=== PATIENT | female | born 1950 | race Caucasian/White ===

== ENCOUNTER 2019-07-24 15:37 | Inpatient (IN) | payer MEDICARE, OTHER ==
[~2019-07-24] VITALS: Ht 162.6 cm; Wt 80.0 kg
[2019-07-24] MEDS: diatr meglu/diatrizoate 30ml oral sol.-(3 dose) bottle PO SCH ×3 (16:27→17:58)
[2019-07-24 16:33] LABS: BASOPHILS % (AUTO) 0.3 % (0-1); EOSINOPHILS # (AUTO) 0.2 X10'3 (0-0.9); EOSINOPHILS % (AUTO) 1.9 % (0-6); HEMATOCRIT 36.5 % (35.0-45.0); HEMOGLOBIN 12.4 g/dl (12.0-16.0); LYMPHOCYTES # (AUTO) 1.5 X10'3 (1.1-4.8); LYMPHOCYTES % (AUTO) 14.7 % (21-51); MEAN CORPUSCULAR HEMOGLOBIN 31.6 PG (27.0-31.0); MEAN CORPUSCULAR HGB CONC 33.9 g/dL (33.0-36.5); MEAN CORPUSCULAR VOLUME 93.4 FL (78-98); MEAN PLATELET VOLUME 8.5 FL (7.4-10.4); MONOCYTES # (AUTO) 0.8 X10'3 (0-0.9); MONOCYTES % (AUTO) 7.5 % (2-12); NEUTROPHILS # (AUTO) 7.6 X10'3 (1.8-7.7); NEUTROPHILS % (AUTO) 75.6 % (42-75); PLATELET COUNT 373 X10'3 (140-440); RED BLOOD COUNT 3.91 X10'6 (4.20-5.60); RED CELL DISTRIBUTION WIDTH 13.7 % (11.5-14.5); WHITE BLOOD COUNT 10.1 X10'3 (4.5-11.0)
[2019-07-24 17:06] LABS: ALANINE AMINOTRANSFERASE 18 U/L (12-78); ALBUMIN 3.2 G/DL (3.4-5.0); ALBUMIN/GLOBULIN RATIO 0.9 (1.1-1.5); ALKALINE PHOSPHATASE 71 IU/L (46-116); ANION GAP 10 (8-16); ASPARTATE AMINO TRANSFERASE 10 U/L (10-37); BILIRUBIN,TOTAL 0.4 MG/DL (0.1-1.0); BLOOD UREA NITROGEN 8 MG/DL (7-18); BUN/CREATININE RATIO 12.1 (6.6-38.0); CALCIUM 9.6 MG/DL (8.5-10.1); CHLORIDE 109 MMOL/L (99-107); CREATININE 0.66 MG/DL (0.40-0.90); GLUCOSE 82 MG/DL (70-104); POTASSIUM 3.9 MMOL/L (3.5-5.1); SODIUM 143 MMOL/L (135-145); TOTAL PROTEIN 6.9 G/DL (6.4-8.2); eGFR 89 ML/MIN
[2019-07-24] MEDS ORDERED: iohexol 300mg/ml 100ml inj. ONE (17:50)
--- NOTE | 2019-07-24 19:13 | NUR ---
spoke SANDRA BRENNER ABOUT UA SPECIMAN. PT SPECIMAN VERY LITTLE. SANDRA BRENNER AWARE UA HAS NOT BE RAN.
[2019-07-24] MEDS ORDERED: normal saline 1000ML IV soln IVB ONE (19:35)
--- NOTE | 2019-07-24 20:01 | NUR ---
PT HAVEING LOOSE STOOL HAS VISITED THE RESTROOM ABOUT 4 TIMES IN THE LAST HOUR SANDRA BRENNER AWARE. NS BOLUS RUNNINH IV PATENT URINE SPECIMAN SENT TO LAB. BEDSIDE COMODE BROUGHT TO ROOM
--- NOTE | 2019-07-24 20:10 | NUR ---
PT GIVEN HS MEDS AND NEW BAG OF NS HUNG. NO COMPLAINTS OF NAUSEA AT THIS TIME. TEACHING REGARDING FOODS ETC. THAT CAN HELP HER WITH THIS AND ALSO ON WIPING STUFF WITH BLEACH IN THE HOME. PT AND VERY RECEPTIVE TO TEACHING.
[2019-07-24] MEDS ORDERED: normal saline 1000ML IV soln IV ONE (20:15)
[2019-07-24 20:16] LABS: COLOR,URINE YELLOW (Yellow); GLUCOSE, URINE NEGATIVE (Neg); KETONES,URINE 15 mg/dl (Neg); LEUKOCYTE ESTERASE ,URINE NEGATIVE (Neg); NITRITES, URINE NEGATIVE (Neg); OCCULT BLOOD,URINE TRACE-INTACT (Neg); PH,URINE 5.5 (4.8-8.0); PROTEIN,URINE NEGATIVE (Neg); UROBILINOGEN,URINE 0.2 E.U/dL (0.2-1.0)
[2019-07-24] MEDS ORDERED: vancomycin 250MG/10ML UD oral solution 10ML BOTTLE PO ONE (20:16)
[2019-07-24 20:28] LABS: CLARITY,URINE SLIGHTLY CLOUDY (Clear); UA COLLECTION TYPE CLN CATCH MIDSTREAM
[2019-07-24 20:30] LABS: BACTERIA,URINE FEW /HPF (Neg); RBC,URINE 0-2 /HPF (0-2); SQUAMOUS EPITHELIAL CELL,UR FEW /LPF (FEW); WBC,URINE 0-4 /HPF (0-4)
--- NOTE | 2019-07-24 20:36 | NUR ---
LAB HERE FOR DRAW
[2019-07-24] MEDS ORDERED: potassium Cl 20 mEq SR tablet PO PRN (20:40)
[2019-07-24] MEDS ORDERED: magnesium hydroxide 30ml (MOM) UD suspension PO PRN (20:40)
[2019-07-24] MEDS ORDERED: potassium CL 10mEq/100ml bag 100 ML IV PRN ×2 (20:40)
[2019-07-24] MEDS ORDERED: acetaminophen 325mg tablet PO PRN ×2 (20:40)
[2019-07-24] MEDS ORDERED: mag hydrox/Alum hydrox/simeth 30ml oral suspension PO PRN (20:40)
[2019-07-24] MEDS ORDERED: HYDROcodone/acetaminophen 5mg/325mg tablet PO PRN (20:40)
--- NOTE | 2019-07-24 20:40 | NUR ---
CONTACT ISOLATION PRECATIONS INITIATED
--- NOTE | 2019-07-24 21:02 | NUR ---
PHONED PHARMACY FOR GAUDENCIO LINTON . 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
--- NOTE | 2019-07-24 21:10 | NUR ---
STOOL SPECIAMN SENT TO LAB
[2019-07-24] MEDS ORDERED: sodium chloride 0.45% 1,000 ML IV SCH (21:20)
--- NOTE | 2019-07-24 21:23 | NUR ---
PHONED ORTHO FLOOR TO ASK RN PATRICIA RN TO REMOVE HERSELF FROM THE PT MED REC SO THAT THE MED REC CAN BEEN COMPLETED IN THE ER PRIOR TO PT BEING REPORTED ON .
[2019-07-24] MEDS ORDERED: HYDR200T80 PO (21:29)
[2019-07-24] MEDS ORDERED: SULI200T97 PO (21:30)
[2019-07-24] MEDS ORDERED: FAMO40TA7 PO ×2 (21:31)
[2019-07-24] MEDS ORDERED: ALEN70TA60 PO (21:32)
[2019-07-24] MEDS ORDERED: IMI20NS NS (21:33)
[2019-07-24] MEDS ORDERED: HYOS-13 PO (21:37)
[2019-07-24] MEDS ORDERED: FLUO10CA30 PO (21:37)
[2019-07-24] MEDS ORDERED: PRED1TAB PO (21:38)
[2019-07-24] MEDS ORDERED: MET0.75G TP (21:38)
[2019-07-24] MEDS ORDERED: FOLI0.4T2 PO (21:40)
[2019-07-24] MEDS ORDERED: LORA10TA7 PO (21:40)
[2019-07-24] MEDS ORDERED: METH-339 PO (21:45)
[2019-07-24] MEDS ORDERED: CALC600T18 PO (21:45)
[2019-07-24] MEDS ORDERED: TURM500C4 PO (21:47)
[2019-07-24] MEDS ORDERED: LACT1CAP65 PO (21:47)
[2019-07-24] MEDS ORDERED: MULT-1085 PO (21:48)
[2019-07-24] MEDS ORDERED: ONDA4TAB12 PO (21:49)
[2019-07-24] MEDS ORDERED: CHOL100046 PO (21:54)
--- NOTE | 2019-07-24 22:05 | NUR ---
Received report from JOSE ELIAS Hudson in ED.
[2019-07-24 22:25] VITALS: BP 113/74
--- NOTE | 2019-07-24 22:25 | NUR ---
Pt transported via wheelchair from ED, assumed patient care.
[2019-07-24] MEDS: metroNIDAZOLE-Flagyl 500mg/NS 100 ML IV SCH (23:53)
[2019-07-25] MEDS: vancomycin 125mg/5ml ORAL solution 5ml UD bottle PO SCH ×4 (03:03→20:33)
[2019-07-25 06:00] VITALS: BP 133/68
--- NOTE | 2019-07-25 06:20 | NUR ---
Patient in room ORTHO 4017. I have received report from Carie and had the opportunity to ask questions and assume patient care.
--- NOTE | 2019-07-25 06:24 | NUR ---
Patient report given, questions answered and plan of care reviewed with JOSE ELIAS Etienne.
[2019-07-25] MEDS: normal saline 1000ml 1,000 ML IV SCH ×4 (06:38→20:36)
[2019-07-25 07:03] LABS: ALBUMIN 2.8 G/DL (3.4-5.0); ANION GAP 11 (8-16); BLOOD UREA NITROGEN 4 MG/DL (7-18); BUN/CREATININE RATIO 7.7 (6.6-38.0); CALCIUM 8.2 MG/DL (8.5-10.1); CHLORIDE 110 MMOL/L (99-107); CREATININE 0.52 MG/DL (0.40-0.90); GLUCOSE 84 MG/DL (70-104); POTASSIUM 3.2 MMOL/L (3.5-5.1); SODIUM 140 MMOL/L (135-145); TOTAL CARBON DIOXIDE 18.9 MMOL/L (24-32); eGFR > 90 ML/MIN
[2019-07-25 07:11] LABS: BASOPHILS # (AUTO) 0.1 X10'3 (0-0.2); BASOPHILS % (AUTO) 0.6 % (0-1); EOSINOPHILS # (AUTO) 0.4 X10'3 (0-0.9); HEMATOCRIT 36.2 % (35.0-45.0); HEMOGLOBIN 12.2 g/dl (12.0-16.0); LYMPHOCYTES % (AUTO) 21.7 % (21-51); MEAN CORPUSCULAR HEMOGLOBIN 31.8 PG (27.0-31.0); MEAN CORPUSCULAR HGB CONC 33.9 g/dL (33.0-36.5); MONOCYTES # (AUTO) 0.8 X10'3 (0-0.9); MONOCYTES % (AUTO) 9.1 % (2-12); NEUTROPHILS # (AUTO) 5.9 X10'3 (1.8-7.7); NEUTROPHILS % (AUTO) 64.6 % (42-75); PLATELET COUNT 367 X10'3 (140-440); RED BLOOD COUNT 3.85 X10'6 (4.20-5.60); RED CELL DISTRIBUTION WIDTH 13.4 % (11.5-14.5); WHITE BLOOD COUNT 9.1 X10'3 (4.5-11.0)
[2019-07-25] MEDS: K and/or MAG REPLACEMENT MC SCH (07:31)
--- NOTE | 2019-07-25 07:45 | NUR ---
Patient complaining of headache, "It feels like a migraine is starting." Also, patient has nausea and vomited up shortly after taking vancomycin.
[2019-07-25] MEDS: potassium Cl 20 mEq SR tablet PO PRN ×3 (07:51→20:33)
[2019-07-25] MEDS: enoxaparin 40mg/0.4ml syringe SUBCUT SCH (07:56)
[2019-07-25] MEDS: ondansetron/PF 4mg/2ml inj IV PRN ×2 (08:11→13:50)
[2019-07-25] MEDS: metroNIDAZOLE-Flagyl 500mg/NS 100 ML IV SCH ×2 (08:20→16:21)
[2019-07-25 09:19] VITALS: BP 132/67
[2019-07-25 10:00] VITALS: BP 132/60
[2019-07-25 10:14] LABS: C DIFF ANTIGEN SEE COMMENTS (NEGATIVE); C DIFF SPECIMEN=DIARRHEA? ACCEPTABLE; C DIFFICILE TOXINS A&B NEGATIVE (Neg)
--- NOTE | 2019-07-25 11:35 | NUR ---
Patient report given, questions answered & plan of care reviewed with
--- NOTE | 2019-07-25 12:07 | NUR ---
Student Medication Administration:For this medication-pass time frame [id number], all medications were reviewed, administered and documented per hospital policy by Sahara Sosa. Student documentation:I have reviewed and agree with all interventions, assessments performed and documented by Sahara Sosa.
--- NOTE | 2019-07-25 12:09 | NUR ---
Pt on regular diet admit w/ recurrent colitis. JOANN d/w RN regarding advancing to low-residue diet given proper MNT per MD approval. Addendum: 07/25/19 at [address] Amended: Links added.
[2019-07-25 12:39] LABS: C DIFF TOXIN (LAMP) POSITIVE (NEG)
[2019-07-25] MEDS: SUMAtriptan 25 MG tablet PO PRN ×2 (13:54→16:27)
[2019-07-25] MEDS ORDERED: SUMAtriptan 25 MG tablet PO ONE (17:00)
[2019-07-25 18:00] VITALS: BP 156/76
--- NOTE | 2019-07-25 18:25 | NUR ---
Patient in room ORTHO 4017. I have received report from YUE MOCTEZUMA and had the opportunity to ask questions and assume patient care. Addendum: 07/25/19 at 2147 by Sabi Guillen RN Amended: Links added.
--- NOTE | 2019-07-25 20:00 | NUR ---
PT TOOK HS MEDS TEACHING TO AND REGARDING FOODS THAT HELP WITH CDIFF AND COLITIS AND PLAN OF CARE REVIEWED WITH PT. ALSO HOW TO CLEAN HOUSE FOR PREVENTION OF SPREADING CDIFF DONE WITH THE .
[2019-07-25] MEDS: lactobacillus rhamnosus 10,000 MMU CELLS/CAPSULE PO SCH (20:33)
[2019-07-25 22:00] VITALS: BP 131/70
--- NOTE | 2019-07-25 22:04 | NUR ---
RESTING ON RIGHT SIDE WITHOUT S&S OF DISTRESS AT THIS TIME.
--- NOTE | 2019-07-26 00:05 | NUR ---
RESTING EYES CLOSED WITH CPAP ON NO S&S OF DISTRESS AT THIS TIME.
[2019-07-26] MEDS: metroNIDAZOLE-Flagyl 500mg/NS 100 ML IV SCH ×3 (00:45→16:53)
--- NOTE | 2019-07-26 02:15 | NUR ---
PT AWOKE CPAP OFF AND TOOK VANCO PO AND STATED SHE HAS HAD 3 BM'S TONIGHT ONE SMALL, A WATERY ONE AND MED SIZED WITH SOME CONSISTENCY. STATES FEELING BETTER TONIGHT. CPAP BACK ON AFTER THIS.
[2019-07-26] MEDS: vancomycin 125mg/5ml ORAL solution 5ml UD bottle PO SCH ×4 (02:25→19:37)
--- NOTE | 2019-07-26 02:44 | NUR ---
resting with cpap on and without s&s of distress at this time.
--- NOTE | 2019-07-26 03:55 | NUR ---
RESTING CPAP ON NO S&S OF DISTRESS.
[2019-07-26 05:43] LABS: BASOPHILS # (AUTO) 0.1 X10'3 (0-0.2); BASOPHILS % (AUTO) 0.7 % (0-1); EOSINOPHILS # (AUTO) 0.4 X10'3 (0-0.9); HEMATOCRIT 34.3 % (35.0-45.0); HEMOGLOBIN 11.8 g/dl (12.0-16.0); LYMPHOCYTES # (AUTO) 2.4 X10'3 (1.1-4.8); LYMPHOCYTES % (AUTO) 25.9 % (21-51); MEAN CORPUSCULAR HGB CONC 34.5 g/dL (33.0-36.5); MEAN CORPUSCULAR VOLUME 92.8 FL (78-98); MEAN PLATELET VOLUME 8.3 FL (7.4-10.4); MONOCYTES # (AUTO) 0.8 X10'3 (0-0.9); NEUTROPHILS # (AUTO) 5.6 X10'3 (1.8-7.7); NEUTROPHILS % (AUTO) 60.4 % (42-75); PLATELET COUNT 386 X10'3 (140-440); RED CELL DISTRIBUTION WIDTH 13.5 % (11.5-14.5); WHITE BLOOD COUNT 9.3 X10'3 (4.5-11.0)
--- NOTE | 2019-07-26 05:57 | NUR ---
RESTING WITH CPAP ON NO S&S OF DISTRESS OR COMPLAINTS AT THIS TIME.
[2019-07-26 05:58] LABS: ALBUMIN 2.7 G/DL (3.4-5.0); ANION GAP 10 (8-16); BLOOD UREA NITROGEN 4 MG/DL (7-18); BUN/CREATININE RATIO 7.1 (6.6-38.0); CALCIUM 7.6 MG/DL (8.5-10.1); CHLORIDE 112 MMOL/L (99-107); CREATININE 0.56 MG/DL (0.40-0.90); GLUCOSE 94 MG/DL (70-104); POTASSIUM 3.7 MMOL/L (3.5-5.1); SODIUM 144 MMOL/L (135-145); TOTAL CARBON DIOXIDE 22.2 MMOL/L (24-32); eGFR > 90 ML/MIN
[2019-07-26 06:00] VITALS: BP 151/67
--- NOTE | 2019-07-26 06:27 | NUR ---
Problems reprioritized. Patient report given, questions answered & plan of care reviewed with YUE MOCTEZUMA.
[2019-07-26] MEDS: normal saline 1000ml 1,000 ML IV SCH ×2 (07:22→16:53)
[2019-07-26] MEDS: K and/or MAG REPLACEMENT MC SCH (08:00)
[2019-07-26 08:02] LABS: PLATELET ESTIMATE NORMAL; TOTAL CELLS COUNTED 100
[2019-07-26 08:03] LABS: POLYCHROMASIA FEW
[2019-07-26] MEDS: lactobacillus rhamnosus 10,000 MMU CELLS/CAPSULE PO SCH ×2 (09:40→19:37)
[2019-07-26] MEDS: enoxaparin 40mg/0.4ml syringe SUBCUT SCH (09:59)
[2019-07-26 10:00] VITALS: BP 137/75
[2019-07-26] MEDS ORDERED: HYOSCYAMINE SULFATE 0.125 MG PO SCH (11:55)
[2019-07-26] MEDS: ondansetron/PF 4mg/2ml inj IV PRN (11:56)
[2019-07-26] MEDS: folic acid 0.4mg tablet PO SCH (12:49)
[2019-07-26] MEDS: SUMAtriptan 25 MG tablet PO PRN (12:49)
[2019-07-26] MEDS: loratadine 10mg tablet PO SCH (12:49)
[2019-07-26] MEDS: predniSONE 1 mg tablet PO SCH (17:00)
--- NOTE | 2019-07-26 17:00 | NUR ---
Pt experience nausea w/ vomiting this am. Zofran given IV with good relief. Pt c/o Migraine at approximately 1300. Imitrex 100mg po administered per pts request with good relief of pain. Pt reports 5 episodes of loose stools today. Pt reports stools are no longer watery but are starting to have some consistency to them and they are a light brown color. Pt is on Contact Precautions for C-Diff. Will continue to monitor.
[2019-07-26 18:00] VITALS: BP 156/64
--- NOTE | 2019-07-26 18:54 | NUR ---
Patient in room ORTHO 4017. I have received report from JOSE ELIAS Etienne and had the opportunity to ask questions and assume patient care. Patient is A&O x3, LESLIE and is appropriate she is sitting up eating dinner w/o problem. I will continue to monitor.
[2019-07-26] MEDS: hydroxychloroquine 200mg tablet PO SCH (19:37)
[2019-07-26] MEDS ORDERED: hydroxychloroquine 200mg tablet PO SCH (20:00)
[2019-07-26 22:00] VITALS: BP 122/60
[2019-07-27] MEDS: normal saline 1000ml 1,000 ML IV SCH (00:49)
[2019-07-27] MEDS: metroNIDAZOLE-Flagyl 500mg/NS 100 ML IV SCH ×2 (00:49→07:49)
[2019-07-27] MEDS: vancomycin 125mg/5ml ORAL solution 5ml UD bottle PO SCH ×3 (02:08→14:25)
[2019-07-27 06:00] VITALS: BP 133/76
--- NOTE | 2019-07-27 06:05 | NUR ---
Patient in room ORTHO 4017. I have received report from ANALI MOCTEZUMA and had the opportunity to ask questions and assume patient care.
--- NOTE | 2019-07-27 06:08 | NUR ---
Problems reprioritized. Patient report given, questions answered & plan of care reviewed with JOSE ELIAS Khan.
[2019-07-27 06:15] LABS: BASOPHILS # (AUTO) 0.1 X10'3 (0-0.2); BASOPHILS % (AUTO) 0.6 % (0-1); EOSINOPHILS # (AUTO) 0.5 X10'3 (0-0.9); EOSINOPHILS % (AUTO) 4.2 % (0-6); HEMATOCRIT 33.8 % (35.0-45.0); HEMOGLOBIN 11.6 g/dl (12.0-16.0); LYMPHOCYTES # (AUTO) 2.6 X10'3 (1.1-4.8); LYMPHOCYTES % (AUTO) 23.6 % (21-51); MEAN CORPUSCULAR HEMOGLOBIN 31.8 PG (27.0-31.0); MEAN CORPUSCULAR HGB CONC 34.4 g/dL (33.0-36.5); MEAN CORPUSCULAR VOLUME 92.6 FL (78-98); MEAN PLATELET VOLUME 8.2 FL (7.4-10.4); MONOCYTES # (AUTO) 1.1 X10'3 (0-0.9); MONOCYTES % (AUTO) 9.7 % (2-12); NEUTROPHILS # (AUTO) 6.7 X10'3 (1.8-7.7); NEUTROPHILS % (AUTO) 61.9 % (42-75); PLATELET COUNT 379 X10'3 (140-440); RED BLOOD COUNT 3.65 X10'6 (4.20-5.60); RED CELL DISTRIBUTION WIDTH 13.3 % (11.5-14.5); WHITE BLOOD COUNT 10.8 X10'3 (4.5-11.0)
[2019-07-27 06:36] LABS: ALBUMIN 2.5 G/DL (3.4-5.0); ANION GAP 9 (8-16); BLOOD UREA NITROGEN 4 MG/DL (7-18); BUN/CREATININE RATIO 7.7 (6.6-38.0); CALCIUM 7.9 MG/DL (8.5-10.1); CHLORIDE 110 MMOL/L (99-107); CREATININE 0.52 MG/DL (0.40-0.90); GLUCOSE 96 MG/DL (70-104); POTASSIUM 3.2 MMOL/L (3.5-5.1); SODIUM 143 MMOL/L (135-145); eGFR > 90 ML/MIN
[2019-07-27] MEDS: K and/or MAG REPLACEMENT MC SCH (07:34)
[2019-07-27] MEDS: loratadine 10mg tablet PO SCH (07:48)
[2019-07-27] MEDS: lactobacillus rhamnosus 10,000 MMU CELLS/CAPSULE PO SCH (07:48)
[2019-07-27] MEDS: hydroxychloroquine 200mg tablet PO SCH (07:49)
[2019-07-27] MEDS: potassium Cl 20 mEq SR tablet PO PRN ×2 (07:49→11:20)
[2019-07-27] MEDS: predniSONE 1 mg tablet PO SCH (07:49)
[2019-07-27] MEDS: folic acid 0.4mg tablet PO SCH (07:49)
[2019-07-27] MEDS: enoxaparin 40mg/0.4ml syringe SUBCUT SCH (07:50)
[2019-07-27] MEDS ORDERED: non-formulary drug (Lactobacillus Acidophilus (Probiotic) 1 EACH) PO SCH (08:00)
[2019-07-27] MEDS ORDERED: FLUoxetine 10mg capsule PO SCH (08:00)
[2019-07-27 09:19] LABS: PLATELET ESTIMATE NORMAL; TOTAL CELLS COUNTED 100; TOXIC GRANULATION 1+
[2019-07-27 09:20] LABS: POLYCHROMASIA FEW
[2019-07-27 10:00] VITALS: BP 134/71
[2019-07-27] MEDS: SUMAtriptan 25 MG tablet PO PRN (11:17)
--- NOTE | 2019-07-27 11:31 | NUR ---
Student documentation: I have reviewed all interventions, assessments performed and documented by Joao Spaulding. Student Medication Administration: For this medication-pass time frame, all medication were reviewed, dispensed, administered and documented per hospital policy by Joao Spaulding.
[2019-07-27] MEDS ORDERED: VANC5VIA PO (13:45)
--- NOTE | 2019-07-27 15:30 | NUR ---
PATIENT DISCHARGED SAFELY WITH . ALL BELONGINGS IN POSSESSION. PATIENT VERBALIZES UNDERSTANDING OF ALL DC INSTRUCTIONS. PRESCRIPTIONS CALLED IN TO JOSE.
== END 2019-07-27 15:50 | disposition home or self-care (01) | DRG 373 ==
LOC: ER 15:37 → ORTHO 4S 22:44 → CMPBEDREQ 07-25 19:48
PROVIDERS: ADMIT Hospitalist; ATTEND Internal Medicine
PROC: BW211ZZ Computerized Tomography (CT Scan) of Abdomen and Pelvis using Low Osmolar Contrast (ICD-10-PCS; 2019-07-24)
PROC: 5A09357 Assistance with Respiratory Ventilation, Less than 24 Consecutive Hours, Continuous Positive Airway Pressure (ICD-10-PCS; principal; 2019-07-25)
PROC: 5A09357 Assistance with Respiratory Ventilation, Less than 24 Consecutive Hours, Continuous Positive Airway Pressure (ICD-10-PCS; 2019-07-27)
DX: A04.72 Enterocolitis due to Clostridium difficile, not specified as recurrent (principal); M48.061 Spinal stenosis, lumbar region without neurogenic claudication; M06.9 Rheumatoid arthritis, unspecified; K58.0 Irritable bowel syndrome with diarrhea; M81.0 Age-related osteoporosis without current pathological fracture; F32.9 Major depressive disorder, single episode, unspecified; G43.909 Migraine, unspecified, not intractable, without status migrainosus; M06.1 Adult-onset Still's disease; Z85.820 Personal history of malignant melanoma of skin; Z88.2 Allergy status to sulfonamides
CPT/HCPCS: 36415; 74177; 80048; 80053; 81001; 83605; 84145; 85025; 85610; 87040; 87081; 87324; 87449; 87493; 96372; 99285; G0378; J1650; J2405; J3490; J7030; J7512; Q9963; Q9967

== ENCOUNTER 2019-08-12 16:28 | Inpatient (IN) | payer MEDICARE, OTHER ==
[~2019-08-12] VITALS: Ht 165.1 cm; Wt 71.0 kg
[~2019-08-12 16:28] MED LIST: ALEN70TA60 PO; CALC600T18 PO; CHOL100046 PO; FAMO40TA7 PO; FLUO10CA30 PO; FOLI0.4T2 PO; HYDR200T80 PO; HYOS-13 PO; IMI20NS NS; LACT1CAP65 PO; LORA10TA7 PO; METH-339 PO; MULT-1085 PO; ONDA4TAB12 PO; PRED1TAB PO; SULI200T97 PO; TURM500C4 PO; VANC5VIA PO
[2019-08-12] MEDS ORDERED: normal saline 1000ML IV soln IVB ONE (17:40)
[2019-08-12 18:19] LABS: BASOPHILS # (AUTO) 0.2 X10'3 (0-0.2); BASOPHILS % (AUTO) 0.7 % (0-1); EOSINOPHILS % (AUTO) 0.2 % (0-6); HEMATOCRIT 38.3 % (35.0-45.0); HEMOGLOBIN 12.9 g/dl (12.0-16.0); LYMPHOCYTES # (AUTO) 0.6 X10'3 (1.1-4.8); LYMPHOCYTES % (AUTO) 2.6 % (21-51); MEAN CORPUSCULAR HEMOGLOBIN 31.3 PG (27.0-31.0); MEAN CORPUSCULAR HGB CONC 33.6 g/dL (33.0-36.5); MEAN CORPUSCULAR VOLUME 93.1 FL (78-98); MEAN PLATELET VOLUME 8.5 FL (7.4-10.4); MONOCYTES # (AUTO) 1.2 X10'3 (0-0.9); NEUTROPHILS # (AUTO) 21.6 X10'3 (1.8-7.7); NEUTROPHILS % (AUTO) 91.5 % (42-75); PLATELET COUNT 380 X10'3 (140-440); RED BLOOD COUNT 4.11 X10'6 (4.20-5.60); RED CELL DISTRIBUTION WIDTH 14.5 % (11.5-14.5); WHITE BLOOD COUNT 23.6 X10'3 (4.5-11.0)
[2019-08-12 18:46] LABS: ALANINE AMINOTRANSFERASE 21 U/L (12-78); ALBUMIN 3.6 G/DL (3.4-5.0); ALBUMIN/GLOBULIN RATIO 1.1 (1.1-1.5); ALKALINE PHOSPHATASE 71 IU/L (46-116); ANION GAP 9 (8-16); ASPARTATE AMINO TRANSFERASE 17 U/L (10-37); BILIRUBIN,TOTAL 0.7 MG/DL (0.1-1.0); BLOOD UREA NITROGEN 21 MG/DL (7-18); BUN/CREATININE RATIO 28.4 (6.6-38.0); CALCIUM 8.8 MG/DL (8.5-10.1); CHLORIDE 103 MMOL/L (99-107); CREATININE 0.74 MG/DL (0.40-0.90); GLUCOSE 97 MG/DL (70-104); LIPASE 77 U/L (73-393); POTASSIUM 3.8 MMOL/L (3.5-5.1); SODIUM 136 MMOL/L (135-145); TOTAL CARBON DIOXIDE 23.8 MMOL/L (24-32); TOTAL PROTEIN 6.9 G/DL (6.4-8.2); eGFR 78 ML/MIN
[2019-08-12] MEDS ORDERED: vancomycin 250MG/10ML UD oral solution 10ML BOTTLE PO SCH (20:00)
[2019-08-12] MEDS ORDERED: SUMA25TA35 PO (20:08)
[2019-08-12] MEDS ORDERED: HYDR200T84 PO (20:08)
[2019-08-12] MEDS ORDERED: TURM500C4 PO (20:08)
[2019-08-12] MEDS ORDERED: potassium CL 10mEq/100ml bag 100 ML IV PRN ×2 (21:00)
[2019-08-12] MEDS ORDERED: magnesium 2GM in 50ml NS 50 ML IV PRN (21:00)
[2019-08-12] MEDS ORDERED: magnesium 4gm in 100ml NS 100 ML IV PRN (21:00)
[2019-08-12] MEDS ORDERED: magnesium Cl slow-release 64mg tablet PO PRN (21:00)
[2019-08-12] MEDS ORDERED: acetaminophen 325mg tablet PO PRN (21:00)
--- NOTE | 2019-08-12 22:08 | NUR ---
Patient in room ED 9. I have received report from JOSE ELIAS [facility] and had the opportunity to ask questions and assume patient care.
[2019-08-12] MEDS: normal saline 1000ml 1,000 ML IV SCH (22:49)
[2019-08-13] VITALS: BP 114/67
[2019-08-13] MEDS: metroNIDAZOLE-Flagyl 500mg/NS 100 ML IV SCH ×4 (00:54→23:56)
[2019-08-13] MEDS: vancomycin 125mg/5ml ORAL solution 5ml UD bottle PO SCH ×4 (01:57→20:34)
[2019-08-13 05:04] LABS: BASOPHILS % (AUTO) 0.1 % (0-1); EOSINOPHILS % (AUTO) 0.2 % (0-6); HEMATOCRIT 36.4 % (35.0-45.0); HEMOGLOBIN 12.4 g/dl (12.0-16.0); LYMPHOCYTES # (AUTO) 0.8 X10'3 (1.1-4.8); LYMPHOCYTES % (AUTO) 3.7 % (21-51); MEAN CORPUSCULAR HEMOGLOBIN 31.6 PG (27.0-31.0); MEAN PLATELET VOLUME 8.5 FL (7.4-10.4); MONOCYTES # (AUTO) 1.4 X10'3 (0-0.9); MONOCYTES % (AUTO) 6.7 % (2-12); NEUTROPHILS # (AUTO) 18.9 X10'3 (1.8-7.7); NEUTROPHILS % (AUTO) 89.3 % (42-75); PLATELET COUNT 342 X10'3 (140-440); RED BLOOD COUNT 3.92 X10'6 (4.20-5.60); WHITE BLOOD COUNT 21.2 X10'3 (4.5-11.0)
[2019-08-13 05:15] LABS: ALBUMIN 3.2 G/DL (3.4-5.0); ANION GAP 10 (8-16); BLOOD UREA NITROGEN 20 MG/DL (7-18); BUN/CREATININE RATIO 32.3 (6.6-38.0); CALCIUM 8.6 MG/DL (8.5-10.1); CHLORIDE 105 MMOL/L (99-107); CREATININE 0.62 MG/DL (0.40-0.90); GLUCOSE 120 MG/DL (70-104); MAGNESIUM 1.9 MG/DL (1.5-2.4); POTASSIUM 3.1 MMOL/L (3.5-5.1); SODIUM 137 MMOL/L (135-145); TOTAL CARBON DIOXIDE 22.4 MMOL/L (24-32); eGFR > 90 ML/MIN
--- NOTE | 2019-08-13 06:39 | NUR ---
Patient in room [facility] 351. I have received report from Bryanna Smith RN and had the opportunity to ask questions and assume patient care.
--- NOTE | 2019-08-13 06:39 | NUR ---
Problems reprioritized. Patient report given, questions answered & plan of care reviewed with keaton Slade. Addendum: 08/13/19 at 0639 by Cheri Santo RN Amended: Links added.
[2019-08-13] MEDS ORDERED: SUMAtriptan 25 MG tablet PO PRN (07:00)
[2019-08-13] MEDS ORDERED: ondansetron 4mg rapidly disintigrating tab PO PRN (07:00)
[2019-08-13] MEDS ORDERED: ondansetron/PF 4mg/2ml inj IV PRN (07:00)
[2019-08-13] MEDS ORDERED: non-formulary drug (Alendronate Sodium* (Fosamax*) 1 TABLET) PO SCH (07:00)
[2019-08-13 07:23] VITALS: BP 129/71
[2019-08-13] MEDS ORDERED: hyoscyamine 0.125mg TAB.SUBL SL PRN (08:00)
[2019-08-13] MEDS: K and/or MAG REPLACEMENT MC SCH (08:00)
[2019-08-13] MEDS ORDERED: non-formulary drug (Turmeric/Turmeric Root Extract (Turmeric 500 mg Capsule) 1 CAP) PO SCH (08:00)
[2019-08-13] MEDS: hydroxychloroquine 200mg tablet PO SCH (08:16)
[2019-08-13] MEDS: multivitamins, therapeutics tablet PO SCH (08:16)
[2019-08-13] MEDS: vitamin D (cholecalciferol) 1,000 unit tablet PO SCH (08:16)
[2019-08-13] MEDS: folic acid 0.4mg tablet PO SCH (08:16)
[2019-08-13] MEDS: famotidine 20mg tablet PO SCH ×2 (08:17→20:33)
[2019-08-13] MEDS: lactobacillus rhamnosus 10,000 MMU CELLS/CAPSULE PO SCH (08:17)
[2019-08-13] MEDS: loratadine 10mg tablet PO SCH (08:17)
[2019-08-13] MEDS: potassium Cl 20 mEq SR tablet PO PRN ×3 (08:31→17:19)
[2019-08-13] MEDS: FLUoxetine 10mg capsule PO SCH (10:46)
[2019-08-13] MEDS: predniSONE 1 mg tablet PO SCH (10:46)
[2019-08-13] MEDS: normal saline 1000ml 1,000 ML IV SCH ×3 (10:50→23:10)
[2019-08-13 11:26] VITALS: BP 117/64
[2019-08-13 11:51] LABS: C DIFF ANTIGEN NEGATIVE (NEGATIVE); C DIFF SPECIMEN=DIARRHEA? ACCEPTABLE; C DIFFICILE TOXINS A&B NEGATIVE (Neg)
[2019-08-13 12:19] LABS: OCCULT BLOOD STOOL NEGATIVE (Neg)
--- NOTE | 2019-08-13 12:37 | NUR ---
c diff toxin negative. Hospitalist notified.
--- NOTE | 2019-08-13 15:19 | NUR ---
Malnutrition consult: Attempted visit with pt at bedside however pt sleeping. Unable to check for visible fat and muscle wasting as pt was under covers however pt appears well developed per H&P. Patient's only wt hx is 80 kg 07/24/19 however no documentation of how that weight was obtained. Current wt is 71 kg resulting in overweight BMI. Pt NPO. No decrease in muscle strength or edema. Pt currently lacks a minimum of two criteria for malnutrition. Will continue to follow and further assess malnutrition criteria during LOS. Addendum: 08/13/19 at [address] Amended: Links added.
[2019-08-13] MEDS: levoFLOXACIN-Levaquin 750MG/D5 150 ML IV SCH (15:40)
[2019-08-13 18:00] VITALS: BP 105/62
--- NOTE | 2019-08-13 18:41 | NUR ---
Problems reprioritized. Patient report given, questions answered & plan of care reviewed with JOSE ELIAS Santos.
--- NOTE | 2019-08-13 18:41 | NUR ---
Patient in room [facility] 351. I have received report from JOSE ELIAS Burrell and had the opportunity to ask questions and assume patient care.
[2019-08-13] MEDS: psyllium seed 3.4 gm packet PO SCH (21:00)
[2019-08-13] MEDS: diatr meglu/diatrizoate 30ml oral sol.-(3 dose) bottle PO SCH (21:56)
[2019-08-14] VITALS: BP 103/63
[2019-08-14] MEDS: vancomycin 125mg/5ml ORAL solution 5ml UD bottle PO SCH ×4 (01:57→20:10)
[2019-08-14 05:32] LABS: ALBUMIN 2.8 G/DL (3.4-5.0); ANION GAP 9 (8-16); BLOOD UREA NITROGEN 13 MG/DL (7-18); BUN/CREATININE RATIO 22.8 (6.6-38.0); CHLORIDE 111 MMOL/L (99-107); CREATININE 0.57 MG/DL (0.40-0.90); GLUCOSE 95 MG/DL (70-104); POTASSIUM 3.5 MMOL/L (3.5-5.1); SODIUM 141 MMOL/L (135-145); TOTAL CARBON DIOXIDE 20.8 MMOL/L (24-32); eGFR > 90 ML/MIN
[2019-08-14 05:55] LABS: BASOPHILS % (AUTO) 0.3 % (0-1); EOSINOPHILS # (AUTO) 0.4 X10'3 (0-0.9); EOSINOPHILS % (AUTO) 2.8 % (0-6); HEMOGLOBIN 11.1 g/dl (12.0-16.0); LYMPHOCYTES # (AUTO) 1.8 X10'3 (1.1-4.8); LYMPHOCYTES % (AUTO) 13.2 % (21-51); MEAN CORPUSCULAR HEMOGLOBIN 31.7 PG (27.0-31.0); MEAN CORPUSCULAR HGB CONC 33.7 g/dL (33.0-36.5); MEAN CORPUSCULAR VOLUME 94.3 FL (78-98); MEAN PLATELET VOLUME 8.9 FL (7.4-10.4); MONOCYTES # (AUTO) 0.8 X10'3 (0-0.9); NEUTROPHILS # (AUTO) 10.8 X10'3 (1.8-7.7); NEUTROPHILS % (AUTO) 77.7 % (42-75); PLATELET COUNT 277 X10'3 (140-440); RED CELL DISTRIBUTION WIDTH 15.2 % (11.5-14.5); WHITE BLOOD COUNT 13.9 X10'3 (4.5-11.0)
--- NOTE | 2019-08-14 06:42 | NUR ---
Patient in room [facility] 351. I have received report from JOSE ELIAS Santos and had the opportunity to ask questions and assume patient care.
--- NOTE | 2019-08-14 06:50 | NUR ---
Problems reprioritized. Patient report given, questions answered & plan of care reviewed with Ina Fontanez RN.
[2019-08-14 07:00] VITALS: BP 119/72
[2019-08-14] MEDS: diatr meglu/diatrizoate 30ml oral sol.-(3 dose) bottle PO SCH ×2 (07:46→10:19)
[2019-08-14] MEDS: levoFLOXACIN-Levaquin 750MG/D5 150 ML IV SCH (07:46)
[2019-08-14] MEDS: K and/or MAG REPLACEMENT MC SCH (08:00)
[2019-08-14] MEDS: metroNIDAZOLE-Flagyl 500mg/NS 100 ML IV SCH ×3 (08:00→23:53)
[2019-08-14] MEDS ORDERED: iohexol 300mg/ml 100ml inj. ONE (10:54)
[2019-08-14] MEDS: folic acid 0.4mg tablet PO SCH (13:56)
[2019-08-14] MEDS: famotidine 20mg tablet PO SCH ×2 (13:56→20:10)
[2019-08-14] MEDS: vitamin D (cholecalciferol) 1,000 unit tablet PO SCH (13:57)
[2019-08-14] MEDS: multivitamins, therapeutics tablet PO SCH (13:57)
[2019-08-14] MEDS: lactobacillus rhamnosus 10,000 MMU CELLS/CAPSULE PO SCH (13:57)
[2019-08-14] MEDS: FLUoxetine 10mg capsule PO SCH (13:57)
[2019-08-14] MEDS: loratadine 10mg tablet PO SCH (13:57)
[2019-08-14] MEDS: predniSONE 1 mg tablet PO SCH (13:58)
[2019-08-14] MEDS: hydroxychloroquine 200mg tablet PO SCH (13:59)
[2019-08-14] MEDS: normal saline 1000ml 1,000 ML IV SCH ×2 (14:07→23:53)
[2019-08-14 18:00] VITALS: BP 140/66
--- NOTE | 2019-08-14 18:07 | NUR ---
Problems reprioritized. Patient report given, questions answered & plan of care reviewed with JOSE ELIAS Santos.
--- NOTE | 2019-08-14 18:12 | NUR ---
Patient in room [facility] 351. I have received report from Ina Fontanez RN and had the opportunity to ask questions and assume patient care.
[2019-08-14] MEDS: psyllium seed 3.4 gm packet PO SCH (20:10)
[2019-08-15] VITALS: BP 122/57
[2019-08-15] MEDS: vancomycin 125mg/5ml ORAL solution 5ml UD bottle PO SCH ×2 (02:04→07:56)
[2019-08-15 06:23] LABS: ALBUMIN 2.8 G/DL (3.4-5.0); ANION GAP 9 (8-16); BLOOD UREA NITROGEN 5 MG/DL (7-18); CALCIUM 7.8 MG/DL (8.5-10.1); CHLORIDE 112 MMOL/L (99-107); GLUCOSE 86 MG/DL (70-104); SODIUM 143 MMOL/L (135-145); TOTAL CARBON DIOXIDE 21.6 MMOL/L (24-32); eGFR > 90 ML/MIN
[2019-08-15 06:36] LABS: POTASSIUM 2.8 MMOL/L (3.5-5.1)
--- NOTE | 2019-08-15 06:38 | NUR ---
Problems reprioritized. Patient report given, questions answered & plan of care reviewed with JOSE ELIAS Owens.
[2019-08-15 06:41] LABS: BASOPHILS # (AUTO) 0.1 X10'3 (0-0.2); BASOPHILS % (AUTO) 0.8 % (0-1); EOSINOPHILS # (AUTO) 0.5 X10'3 (0-0.9); HEMATOCRIT 32.3 % (35.0-45.0); HEMOGLOBIN 10.9 g/dl (12.0-16.0); LYMPHOCYTES # (AUTO) 2.1 X10'3 (1.1-4.8); LYMPHOCYTES % (AUTO) 28.5 % (21-51); MEAN CORPUSCULAR HEMOGLOBIN 31.8 PG (27.0-31.0); MEAN CORPUSCULAR HGB CONC 33.9 g/dL (33.0-36.5); MEAN PLATELET VOLUME 8.6 FL (7.4-10.4); MONOCYTES # (AUTO) 0.6 X10'3 (0-0.9); MONOCYTES % (AUTO) 7.6 % (2-12); NEUTROPHILS # (AUTO) 4.1 X10'3 (1.8-7.7); NEUTROPHILS % (AUTO) 56.1 % (42-75); PLATELET COUNT 268 X10'3 (140-440); RED BLOOD COUNT 3.43 X10'6 (4.20-5.60); RED CELL DISTRIBUTION WIDTH 14.3 % (11.5-14.5); WHITE BLOOD COUNT 7.3 X10'3 (4.5-11.0)
--- NOTE | 2019-08-15 07:03 | NUR ---
PAGER ID: [phone] MESSAGE: Missy Nolan 351 Critical potassium 2.8. Please note that CL is 112 as well and pt. is on NS @ 100. Graciela [id number]
[2019-08-15] MEDS: hydroxychloroquine 200mg tablet PO SCH (07:56)
[2019-08-15] MEDS: metroNIDAZOLE-Flagyl 500mg/NS 100 ML IV SCH (07:56)
[2019-08-15] MEDS: loratadine 10mg tablet PO SCH (07:57)
[2019-08-15] MEDS: multivitamins, therapeutics tablet PO SCH (07:57)
[2019-08-15] MEDS: predniSONE 1 mg tablet PO SCH (07:57)
[2019-08-15] MEDS: lactobacillus rhamnosus 10,000 MMU CELLS/CAPSULE PO SCH (07:57)
[2019-08-15] MEDS: famotidine 20mg tablet PO SCH (07:57)
[2019-08-15] MEDS: vitamin D (cholecalciferol) 1,000 unit tablet PO SCH (07:57)
[2019-08-15] MEDS: folic acid 0.4mg tablet PO SCH (07:58)
[2019-08-15] MEDS: FLUoxetine 10mg capsule PO SCH (07:58)
[2019-08-15] MEDS: potassium Cl 20 mEq SR tablet PO PRN ×2 (07:59→12:21)
[2019-08-15 08:02] VITALS: BP 131/69
[2019-08-15] MEDS: K and/or MAG REPLACEMENT MC SCH (08:08)
[2019-08-15] MEDS: levoFLOXACIN-Levaquin 750MG/D5 150 ML IV SCH (09:54)
[2019-08-15] MEDS ORDERED: VANC5VIA PO (11:39)
--- NOTE | 2019-08-15 12:40 | NUR ---
PT. DISCHARGED PER ORDER. WAS HERE TO REVIEW DISCHARGE PAPERWORK WELL. HE GATHERED PT'S BELONGING AND TOOK THEM HOME. IV DC'D, PRESSURE BANDAGE APPLIED, NO S/SX BLEEDING NOTED. NO TELE. DISCHARGE PLAN AND MEDICATIONS REVIEWED WITH PT. POTASSIUM REPLACEMENT GIVEN PER ORDER. DIET DISCUSSED FOR HYPOKALEMIA AND DIARRHEA. PT. KNOWS TO FOLLOW UP WITH PCP WITHIN A WEEK. ESCORTED OUT OF THE HOSPITAL IN A W/C BY HOSPITAL VOLUNTEER. PT. KNOWS TO A P SUPERVISOR VANCO PRESCRIPTION AT [facility].
--- NOTE | 2019-08-15 12:45 | NUR ---
Spoke to MD regarding critical potassium. one replacement given. MD stated to give one more dose 40 meq poral potassium per protocol and declined a third dose or lab redraw of potassium level. Gave orders to give pt. education on discharge about hypokalemia. Second dose of k given per order. written and verbal education given on hypokalemia, pt. gave good verbaL FEEDBACK.
[2019-08-15 12:57] VITALS: BP 131/80
== END 2019-08-15 13:05 | disposition home or self-care (01) | DRG 872 ==
LOC: ER 16:29 → ED HOLD 20:59 → SUR 3N 22:25
PROVIDERS: ADMIT Internal Medicine; ATTEND Hospitalist
PROC: BW211ZZ Computerized Tomography (CT Scan) of Abdomen and Pelvis using Low Osmolar Contrast (ICD-10-PCS; principal; 2019-08-14)
DX: A41.9 Sepsis, unspecified organism (principal); A04.72 Enterocolitis due to Clostridium difficile, not specified as recurrent; M48.061 Spinal stenosis, lumbar region without neurogenic claudication; E87.6 Hypokalemia; F32.9 Major depressive disorder, single episode, unspecified; G43.909 Migraine, unspecified, not intractable, without status migrainosus; M81.0 Age-related osteoporosis without current pathological fracture; E83.42 Hypomagnesemia; E83.39 Other disorders of phosphorus metabolism; Z88.2 Allergy status to sulfonamides
CPT/HCPCS: 36415; 74177; 80048; 80053; 82272; 83605; 83690; 83735; 84145; 85025; 87040; 87045; 87046; 87077; 87081; 87088; 87186; 87324; 87449; 89055; 99285; G0378; J1956; J3490; J7030; J7512; Q9963; Q9967

== ENCOUNTER 2022-04-14 10:17 | Emergency (ER) | payer MEDICARE, OTHER ==
[~2022-04-14] VITALS: Ht 162.6 cm; Wt 73.6 kg
[~2022-04-14 10:17] MED LIST changes: -FLUO10CA30 PO; -FOLI0.4T2 PO; +FOLI0.4T6 PO; -HYDR200T80 PO; +HYDR200T84 PO; -IMI20NS NS; +PROZ10C PO; +SUMA25TA35 PO
[2022-04-14 10:24] VITALS: BP 117/71
[2022-04-14] MEDS ORDERED: BEBTELOVIMAB 175 MG/2 ML VIAL IV ONE (11:30)
== END 2022-04-14 13:51 | disposition home or self-care (01) ==
LOC: ER 10:18
DX: U07.1 COVID-19 (principal); Z88.2 Allergy status to sulfonamides; Z79.899 Other long term (current) drug therapy
CPT/HCPCS: 87635; 99283; C9803; M0222; Q0222